=== PATIENT | female | born 1955 | race Caucasian/White ===

== ENCOUNTER 2023-03-10 08:00 | Emergency (ER) | payer OTHER ==
[2023-03-10 08:06] VITALS: RESP 18; BMI 31.8
[2023-03-10] MEDS ORDERED: FAMOTIDINE 20 MG/50 ML IVPB 20 MG/50 ML MG IVPB ONE ×2 (08:21→09:38)
[2023-03-10] MEDS ORDERED: ACETAMINOPHEN 1000 MG/100 ML BAG IVPB ONE (08:22)
[2023-03-10] MEDS ORDERED: ONDANSETRON 4 MG/2 ML VIAL IVPUSH ONE (08:22)
[2023-03-10] MEDS ORDERED: ACETAMINOPHEN INJECTION 100 ML IVPB ONE (08:58)
[2023-03-10] MEDS ORDERED: ONDANSETRON 4 MG/2 ML VIAL ONE (08:58)
[2023-03-10] MEDS ORDERED: LACTATED RINGERS SOLUTION 1000 ML INFUS.BAG IV ONE (09:19)
[2023-03-10 09:45] LABS: BASO % 0.4 % (0-2.0); EOS % 0.1 % (0-4.5); EPI CELLS 14 /uL (0-25.1); HEMOGLOBIN 14.2 GM/dL (10.7-15.3); HYALINE CASTS 1 /uL (0-3.1); LYMPH % 14.8 % (8-40); MCH 26.2 pg (25.7-33.7); MCHC 33.9 g/dl (32.0-36.0); MEAN CELL VOLUME 77.4 fl (80-96); MEAN PLT VOLUME 7.8 fl (7.5-11.1); MONO % 4.6 % (3.8-10.2); NEUT % 80.1 % (42.8-82.8); PH,URINE 5.5 (5.0-8.0); PLATELET COUNT 211 10^3/uL (134-434); RBC 5.43 M/mm3 (3.60-5.2); RDW 14.9 % (11.6-15.6); URINE APPEARANCE CLEAR; URINE BACTERIA 234 /uL (0-1359); URINE BILIRUBIN NEGATIVE (NEGATIVE); URINE COLOR YELLOW; URINE GLUCOSE (UA) NEGATIVE (NEGATIVE); URINE KETONE 3+ (NEGATIVE); URINE LEUK ESTERASE NEGATIVE (NEGATIVE); URINE NITRITE NEGATIVE (NEGATIVE); URINE PROTEIN 1+ (NEGATIVE); URINE RBC 105 /uL (0-23.9); URINE UROBILINOGEN 0.2 mg/dL (0.2-1.0); URINE WBC 11 /uL (0-25.8)
[2023-03-10 09:47] LABS: INR 1.14 (0.83-1.09); PROTHROMBIN TIME (PATIENT) 13.2 SEC (9.7-13.0)
[2023-03-10 09:49] LABS: ACTIVATED PTT 33.7 SECONDS (25.2-36.5)
[2023-03-10 09:59] LABS: ALBUMIN 3.9 g/dl (3.4-5.0)
[2023-03-10 10:00] LABS: BLOOD UREA NITROGEN 13.5 mg/dL (7-18); POTASSIUM 3.9 mmol/L (3.5-5.1)
[2023-03-10 10:03] LABS: CREATININE 0.7 mg/dL (0.55-1.3)
[2023-03-10 10:04] LABS: TOT PROT 7.1 g/dl (6.4-8.2)
[2023-03-10] MEDS ORDERED: KETOROLAC TROMETHAMINE 15 MG/ML VIAL IVPUSH ONE (11:34)
[2023-03-10] MEDS ORDERED: KETOROLAC TROMETHAMINE 15 MG/ML VIAL ONE (11:50)
[2023-03-10 14:39] VITALS: BP 130/79; PULSE 57; TEMP 97.9
== END 2023-03-10 14:58 | disposition home or self-care (01) ==
LOC: JER 08:00
PROC: 3E033GC Introduction of Other Therapeutic Substance into Peripheral Vein, Percutaneous Approach (ICD-10-PCS; principal; 2023-03-10)
PROC: 3E033NZ Introduction of Analgesics, Hypnotics, Sedatives into Peripheral Vein, Percutaneous Approach (ICD-10-PCS; 2023-03-10)
PROC: 3E0333Z Introduction of Anti-inflammatory into Peripheral Vein, Percutaneous Approach (ICD-10-PCS; 2023-03-10)
PROC: 3E033GC Introduction of Other Therapeutic Substance into Peripheral Vein, Percutaneous Approach (ICD-10-PCS; 2023-03-10)
DX: K80.20 Calculus of gallbladder without cholecystitis without obstruction (principal); R31.9 Hematuria, unspecified; R10.11 Right upper quadrant pain; R10.13 Epigastric pain; R11.0 Nausea; K80.51 Calculus of bile duct without cholangitis or cholecystitis with obstruction; N20.0 Calculus of kidney
CPT/HCPCS: 36415; 74176-TC; 76705-TC; 80053; 81003; 83690; 85025; 85610; 85730; 86850; 86900; 86901; 93005; 93010; 99285-25

== ENCOUNTER 2023-05-28 12:49 | Emergency (ER) | payer OTHER ==
[2023-05-28 13:01] VITALS: BMI 30.8
[2023-05-28 16:35] LABS: BASO % 0.6 % (0-2.0); EOS % 2.4 % (0-4.5); HEMATOCRIT 45.3 % (32.4-45.2); HEMOGLOBIN 15.1 GM/dL (10.7-15.3); LYMPH % 37.4 % (8-40); MCH 26.3 pg (25.7-33.7); MCHC 33.3 g/dl (32.0-36.0); MEAN PLT VOLUME 7.8 fl (7.5-11.1); MONO % 7.6 % (3.8-10.2); PLATELET COUNT 195 10^3/uL (134-434); RBC 5.74 M/mm3 (3.60-5.2); RDW 15.5 % (11.6-15.6); WHITE BLOOD COUNT 7.7 K/mm3 (4.0-10.0)
[2023-05-28 16:37] LABS: EPI CELLS 30 /uL (0-25.1); HYALINE CASTS 4 /uL (0-3.1); PH,URINE 5.5 (5.0-8.0); URINE APPEARANCE CLEAR; URINE BACTERIA 59 /uL (0-1359); URINE BILIRUBIN 3+ (NEGATIVE); URINE COLOR DK YELLOW; URINE GLUCOSE (UA) NEGATIVE (NEGATIVE); URINE KETONE TRACE (NEGATIVE); URINE LEUK ESTERASE TRACE (NEGATIVE); URINE NITRITE NEGATIVE (NEGATIVE); URINE PROTEIN 1+ (NEGATIVE); URINE WBC 3 /uL (0-25.8)
[2023-05-28 16:57] LABS: POTASSIUM 4.4 mmol/L (3.5-5.1)
[2023-05-28 17:00] LABS: ALBUMIN 3.8 g/dl (3.4-5.0); BLOOD UREA NITROGEN 13.4 mg/dL (7-18); CALCIUM 9.6 mg/dL (8.5-10.1)
[2023-05-28 17:03] LABS: CREATININE 0.7 mg/dL (0.55-1.3)
[2023-05-28 17:05] LABS: BILIRUBIN,TOTAL 3.8 mg/dL (0.2-1); TOT PROT 7.4 g/dl (6.4-8.2)
[2023-05-28 17:10] LABS: URINE CRYSTALS FEW CALCIUM OXALATES /hpf; URINE RBC 30.9 /uL (0-23.9)
[2023-05-28] MEDS ORDERED: DEXTROSE 5%-0.45% SALINE 1,000 ML IV SCH (22:45)
[2023-05-29 02:12] VITALS: PULSE 62; RESP 16; TEMP 98.6
== END 2023-05-29 03:01 | disposition short-term general hospital (02) ==
LOC: JER 12:49
PROC: 3E033GC Introduction of Other Therapeutic Substance into Peripheral Vein, Percutaneous Approach (ICD-10-PCS; principal; 2023-05-28)
DX: M54.50 Low back pain, unspecified (principal); R10.13 Epigastric pain; K83.1 Obstruction of bile duct; R82.998 Other abnormal findings in urine; R19.5 Other fecal abnormalities; K59.00 Constipation, unspecified; Z20.822 Contact with and (suspected) exposure to COVID-19
CPT/HCPCS: 0241U-QW; 36415; 76700-TC; 80053; 81003; 83690; 85025; 99285-25

== ENCOUNTER 2023-07-11 01:42 | Inpatient (IN) | payer OTHER ==
[2023-07-11] MEDS ORDERED: morphine SULFATE 4 MG/ML VIAL IVPUSH ONE ×2 (02:32→05:36)
[2023-07-11] MEDS ORDERED: FAMOTIDINE 20 MG/50 ML IVPB 20 MG/50 ML MG IVPB ONE ×2 (02:32→02:39)
[2023-07-11] MEDS ORDERED: LACTATED RINGERS SOLUTION 1000 ML INFUS.BAG IV ONE (02:32)
[2023-07-11] MEDS ORDERED: ONDANSETRON 4 MG/2 ML VIAL IVPUSH ONE (02:32)
[2023-07-11] MEDS ORDERED: morphine SULFATE 4 MG/ML VIAL ONE (02:38)
[2023-07-11] MEDS ORDERED: ONDANSETRON 4 MG/2 ML VIAL ONE ×2 (02:39→09:14)
[2023-07-11 03:31] LABS: BASO % 0.4 % (0-2.0); HEMATOCRIT 44.7 % (32.4-45.2); HEMOGLOBIN 14.5 GM/dL (10.7-15.3); LYMPH % 14.3 % (8-40); MCH 25.5 pg (25.7-33.7); MCHC 32.4 g/dl (32.0-36.0); MEAN CELL VOLUME 78.8 fl (80-96); MEAN PLT VOLUME 8.1 fl (7.5-11.1); MONO % 2.6 % (3.8-10.2); NEUT % 82.7 % (42.8-82.8); PLATELET COUNT 223 10^3/uL (134-434); RBC 5.68 M/mm3 (3.60-5.2); RDW 15.1 % (11.6-15.6); WHITE BLOOD COUNT 12.3 K/mm3 (4.0-10.0)
[2023-07-11 03:40] LABS: INR 1.13 (0.83-1.09); PROTHROMBIN TIME (PATIENT) 13.1 SEC (9.7-13.0)
[2023-07-11 03:48] LABS: POTASSIUM 4.1 mmol/L (3.5-5.1)
[2023-07-11 03:52] LABS: ALBUMIN 3.9 g/dl (3.4-5.0); BLOOD UREA NITROGEN 16.3 mg/dL (7-18); CALCIUM 10.1 mg/dL (8.5-10.1)
[2023-07-11 03:55] LABS: BILIRUBIN,DIRECT 0.2 mg/dL (0.0-0.2); CREATININE 0.9 mg/dL (0.55-1.3)
[2023-07-11 03:57] LABS: BILIRUBIN,TOTAL 0.8 mg/dL (0.2-1); TOT PROT 7.5 g/dl (6.4-8.2)
[2023-07-11] MEDS ORDERED: ONDANSETRON 4 MG/2 ML VIAL IVPUSH PRN ×2 (08:29→15:21)
[2023-07-11] MEDS ORDERED: SODIUM CHLORIDE 1,000 ML IV SCH (08:30)
[2023-07-11] MEDS ORDERED: ACETAMINOPHEN 1000 MG/100 ML BAG IVPB PRN (09:24)
[2023-07-11 10:09] LABS: EPI CELLS >36 /uL (0-25.1); HYALINE CASTS 5 /uL (0-3.1); URINE APPEARANCE CLEAR; URINE BACTERIA 83 /uL (0-1359); URINE BILIRUBIN NEGATIVE (NEGATIVE); URINE COLOR YELLOW; URINE GLUCOSE (UA) NEGATIVE (NEGATIVE); URINE KETONE NEGATIVE (NEGATIVE); URINE LEUK ESTERASE NEGATIVE (NEGATIVE); URINE NITRITE NEGATIVE (NEGATIVE); URINE PROTEIN NEGATIVE (NEGATIVE); URINE RBC 20 /uL (0-23.9); URINE UROBILINOGEN 0.2 mg/dL (0.2-1.0); URINE WBC 31 /uL (0-25.8)
[2023-07-11 10:26] LABS: HEMATOCRIT 41.7 % (32.4-45.2); HEMOGLOBIN 13.3 GM/dL (10.7-15.3); MCH 25.5 pg (25.7-33.7); MCHC 31.8 g/dl (32.0-36.0); MEAN CELL VOLUME 80.3 fl (80-96); PLATELET COUNT 200 10^3/uL (134-434); RDW 15.1 % (11.6-15.6); WHITE BLOOD COUNT 12.9 K/mm3 (4.0-10.0)
[2023-07-11 11:34] LABS: ALBUMIN 3.6 g/dl (3.4-5.0); BILIRUBIN,TOTAL 0.7 mg/dL (0.2-1); BLOOD UREA NITROGEN 13.1 mg/dL (7-18); CALCIUM 9.5 mg/dL (8.5-10.1); CREATININE 0.6 mg/dL (0.55-1.3); MAGNESIUM 1.7 mg/dL (1.8-2.4); PHOSPHOROUS 3.1 mg/dL (2.5-4.9); POTASSIUM 3.8 mmol/L (3.5-5.1); TOT PROT 6.8 g/dl (6.4-8.2)
[2023-07-11] MEDS ORDERED: DEXTROSE 5%-LACTATED RINGERS 1,000 ML IV SCH ×2 (11:45→15:21)
[2023-07-11] MEDS ORDERED: MAGNESIUM 1GM/D5W - 1 GM/100 ML IVPB IVPB ONE (11:47)
[2023-07-11] MEDS ORDERED: MAGNESIUM SULF 50% (8.12 MEQ/2 ML-1 GM VIAL) IVPB ONE (12:00)
[2023-07-11] MEDS ORDERED: BUPIVACAINE HCL/PF 0.25% (2.5MG/ML) 10 ML VIAL ONE (12:57)
[2023-07-11] MEDS ORDERED: PROPOFOL 20 ML ONE ×2 (13:34→13:48)
[2023-07-11] MEDS ORDERED: FENTANYL CITRATE/PF 50 MCG/ML VIAL ONE ×5 (13:34→15:59)
[2023-07-11] MEDS ORDERED: MIDAZOLAM HCL 2 MG/2 ML SINGLE DOSE VIAL ONE (13:34)
[2023-07-11] MEDS ORDERED: ROCURONIUM BROMIDE 50 MG/5 ML SYRINGE ONE (13:35)
[2023-07-11] MEDS ORDERED: cefOXitin SODIUM 2 GM VIAL (RESTRICTED TO ID) IVPB ONE ×2 (13:52→13:54)
[2023-07-11] MEDS ORDERED: BUPIVACAINE HCL/PF 2.5 MG/ML - 30 ML VIAL IJ ONE (13:57)
[2023-07-11] MEDS ORDERED: SUGAMMADEX SODIUM 200 MG/2 ML VIAL ONE (14:33)
[2023-07-11] MEDS ORDERED: oxyCODONE HCL 5 MG TABLET PO PRN ×2 (15:21)
[2023-07-12 07:04] LABS: BASO % 0.3 % (0-2.0); HEMATOCRIT 41.2 % (32.4-45.2); HEMOGLOBIN 13.1 GM/dL (10.7-15.3); LYMPH % 10.8 % (8-40); MCH 25.6 pg (25.7-33.7); MCHC 31.7 g/dl (32.0-36.0); MEAN PLT VOLUME 8.3 fl (7.5-11.1); MONO % 7.4 % (3.8-10.2); NEUT % 81.5 % (42.8-82.8); PLATELET COUNT 186 10^3/uL (134-434); RBC 5.09 M/mm3 (3.60-5.2); RDW 14.9 % (11.6-15.6); WHITE BLOOD COUNT 19.8 K/mm3 (4.0-10.0)
[2023-07-12 07:56] LABS: POTASSIUM 3.9 mmol/L (3.5-5.1)
[2023-07-12 07:58] LABS: CALCIUM 9.3 mg/dL (8.5-10.1)
[2023-07-12 07:59] LABS: ALBUMIN 3.3 g/dl (3.4-5.0); BLOOD UREA NITROGEN 9.7 mg/dL (7-18)
[2023-07-12 08:02] LABS: CREATININE 0.6 mg/dL (0.55-1.3)
[2023-07-12 08:04] LABS: TOT PROT 6.6 g/dl (6.4-8.2)
[2023-07-12] MEDS: ACETAMINOPHEN 500 MG TABLET (FP) PO PRN ×3 (08:27→22:23)
[2023-07-12] MEDS: AMOX TR/POT CLAV 875MG/125MG TABLETS (FP) PO SCH ×2 (11:44→17:22)
[2023-07-12] MEDS ORDERED: POLYETHYLENE GLYCOL (HEALTHYLAX) 3350 17 GM PACKET PO SCH (14:30)
[2023-07-13 07:42] LABS: BASO % 0.4 % (0-2.0); EOS % 0.2 % (0-4.5); HEMATOCRIT 38.3 % (32.4-45.2); LYMPH % 22.9 % (8-40); MCH 25.5 pg (25.7-33.7); MCHC 31.3 g/dl (32.0-36.0); MEAN CELL VOLUME 81.3 fl (80-96); MEAN PLT VOLUME 8.4 fl (7.5-11.1); NEUT % 66.5 % (42.8-82.8); PLATELET COUNT 175 10^3/uL (134-434); RBC 4.71 M/mm3 (3.60-5.2); WHITE BLOOD COUNT 13.9 K/mm3 (4.0-10.0)
[2023-07-13 08:12] LABS: POTASSIUM 4.4 mmol/L (3.5-5.1)
[2023-07-13 08:18] LABS: BLOOD UREA NITROGEN 14.5 mg/dL (7-18); CALCIUM 8.9 mg/dL (8.5-10.1)
[2023-07-13 08:21] LABS: CREATININE 0.5 mg/dL (0.55-1.3)
[2023-07-13] MEDS: IBUPROFEN 600 MG TABLET (FP) PO SCH ×4 (09:37→21:18)
[2023-07-13] MEDS: AMOX TR/POT CLAV 875MG/125MG TABLETS (FP) PO SCH (09:37)
[2023-07-13] MEDS: oxyCODONE HCL 5 MG TABLET PO SCH ×4 (09:38→21:20)
[2023-07-13] MEDS: LIDOCAINE 4% PATCH TP SCH (11:01)
[2023-07-13 16:43] VITALS: BMI 30.6
[2023-07-13] MEDS: PIPERACILLIN/TAZOB 3.375 GM 3.375 GM in DEXTROSE 5%-WATER - 50 ML IVPB SCH (17:46)
[2023-07-13] MEDS: ALBUTEROL SO4 2.5/IPRATROPIUM 0.5 INH SOL 3 ML VIAL.NEB. NEB SCH (20:37)
[2023-07-13] MEDS: LIDOCAINE PATCH REMOVAL MC SCH (21:35)
[2023-07-14] MEDS: PIPERACILLIN/TAZOB 3.375 GM 3.375 GM in DEXTROSE 5%-WATER - 50 ML IVPB SCH ×3 (03:05→17:34)
[2023-07-14] MEDS: oxyCODONE HCL 5 MG TABLET PO SCH ×6 (03:17→21:22)
[2023-07-14] MEDS: IBUPROFEN 600 MG TABLET (FP) PO SCH ×4 (03:18→21:22)
[2023-07-14 07:27] LABS: BASO % 0.6 % (0-2.0); EOS % 0.9 % (0-4.5); HEMATOCRIT 37.8 % (32.4-45.2); HEMOGLOBIN 11.9 GM/dL (10.7-15.3); LYMPH % 27.6 % (8-40); MCH 25.5 pg (25.7-33.7); MCHC 31.5 g/dl (32.0-36.0); MEAN CELL VOLUME 80.9 fl (80-96); MEAN PLT VOLUME 8.4 fl (7.5-11.1); MONO % 9.6 % (3.8-10.2); NEUT % 61.3 % (42.8-82.8); PLATELET COUNT 190 10^3/uL (134-434); RBC 4.67 M/mm3 (3.60-5.2); RDW 14.8 % (11.6-15.6); WHITE BLOOD COUNT 9.8 K/mm3 (4.0-10.0)
[2023-07-14 08:04] LABS: POTASSIUM 3.7 mmol/L (3.5-5.1)
[2023-07-14 08:14] LABS: ALBUMIN 2.7 g/dl (3.4-5.0)
[2023-07-14 08:16] LABS: BILIRUBIN,TOTAL 1.6 mg/dL (0.2-1); TOT PROT 5.8 g/dl (6.4-8.2)
[2023-07-14 08:17] LABS: CALCIUM 8.9 mg/dL (8.5-10.1); CREATININE 0.5 mg/dL (0.55-1.3)
[2023-07-14] MEDS: ALBUTEROL SO4 2.5/IPRATROPIUM 0.5 INH SOL 3 ML VIAL.NEB. NEB SCH ×4 (08:55→20:02)
[2023-07-14] MEDS: LIDOCAINE 4% PATCH TP SCH (09:32)
[2023-07-14] MEDS: ACETAMINOPHEN 500 MG TABLET (FP) PO PRN (17:34)
[2023-07-14] MEDS: LIDOCAINE PATCH REMOVAL MC SCH (21:26)
[2023-07-15] MEDS: PIPERACILLIN/TAZOB 3.375 GM 3.375 GM in DEXTROSE 5%-WATER - 50 ML IVPB SCH ×2 (03:30→10:11)
[2023-07-15] MEDS: IBUPROFEN 600 MG TABLET (FP) PO SCH ×2 (03:30→10:10)
[2023-07-15] MEDS: oxyCODONE HCL 5 MG TABLET PO SCH ×3 (03:30→10:08)
[2023-07-15 05:44] VITALS: TEMP 98.2
[2023-07-15] MEDS: ALBUTEROL SO4 2.5/IPRATROPIUM 0.5 INH SOL 3 ML VIAL.NEB. NEB SCH ×2 (07:45→11:47)
[2023-07-15] MEDS: LIDOCAINE 4% PATCH TP SCH (10:10)
[2023-07-15 11:50] VITALS: PULSE 73
[2023-07-15 13:00] VITALS: BP 122/70; RESP 18
== END 2023-07-15 13:51 | disposition home or self-care (01) | DRG 418 ==
LOC: JER 01:42 → UNDOADMOB 02:34 → JERBED 02:34 → INTOOBSV 08:25 → OBSVTOIN 08:25 → SUATTDRO 14:44 → JASUSAT 14:44 → J4W 18:05 → JASUSAT 18:06 → J4W 07-12 11:39
PROVIDERS: ADMIT Internal Medicine; ATTEND Nurse Practitioner Family
PROC: 0FT44ZZ Resection of Gallbladder, Percutaneous Endoscopic Approach (ICD-10-PCS; principal; 2023-07-11 16:00)
DX: K80.00 Calculus of gallbladder with acute cholecystitis without obstruction (principal); J95.89 Other postprocedural complications and disorders of respiratory system, not elsewhere classified; J98.11 Atelectasis; R09.02 Hypoxemia; Y83.8 Other surgical procedures as the cause of abnormal reaction of the patient, or of later complication, without mention of misadventure at the time of the procedure
CPT/HCPCS: 0241U-QW; 36415; 71045-TC-FY; 71046-TC-FY; 71250-TC; 74176-TC; 80053; 81003; 82248; 83605; 83690; 83735; 84100; 84439; 84443; 84484; 85025; 85027; 85610; 86850; 86900; 86901; 87086; 88304-TC; 93005; 93010; 94640; 94760; 94761; 97116-GP; 97161-GP; 99285-25